=== PATIENT | male | born 1950 | race Caucasian/White ===

== ENCOUNTER 2019-11-07 08:48 | Inpatient (IN) ==
[2019-11-07] MEDS ORDERED: PANTOPRAZOLE 40 MG VIAL IV STA (09:43)
[2019-11-07] MEDS ORDERED: ONDANSETRON 4 MG/2 ML VIAL IV PRN (09:43)
[2019-11-07] MEDS ORDERED: SODIUM CHLORIDE 0.9% 1,000 ML IV STA (09:43)
[2019-11-07 10:12] LABS: Basophils # 0.1 10*3/uL (0.0-0.2); Basophils % 0.7 % (0.0-0.8); Eosinophils # 0.2 10*3/uL (0.0-0.87); Eosinophils % 1.8 % (0.00-10.9); Hematocrit 49.7 VOL% (42.0-52.0); Hemoglobin 16.6 GM/DL (14.0-18.0); Immature Granulocytes % 1.3 %; Immature Granulocytes Absolute 0.11 #; Lymphocytes # 0.7 10*3/uL (1.4-4.0); Mean Corpuscular HGB Conc 33.4 GM/DL (32-36); Mean Corpuscular Volume 95.9 FL (87-102); Mean Platelet Volume 10.5 FL (9.6-12.0); Monocytes % 11.4 % (1.7-12.7); Neutrophils % 76.8 % (38.7-73.9); Platelet Count 225 T/CUMM (130-400); Red Blood Count 5.18 MC/CUMM (3.8-5.5); Red Cell Distribution Width 14.9 % (9.3-17.3); White Blood Count 8.4 T/CUMM (4-12)
[2019-11-07 10:22] LABS: Partial Thromboplastin Time 30.7 SECS (23.9-33.8)
[2019-11-07 10:37] LABS: Bilirubin,Total 0.9 MG/DL (0.2-1.0); Calcium 8.9 MG/DL (8.5-10.1); Osmolality,Calculated 280.5 MOS/KG (273-304); Total Protein 6.6 G/DL (6.4-8.3)
[2019-11-07] MEDS ORDERED: ALBUTEROL 2.5 MG/3 ML NEB RESP TX PRN (11:21)
[2019-11-07] MEDS ORDERED: GLUCAGON 1 MG VIAL IM PRN (11:25)
[2019-11-07] MEDS ORDERED: DEXTROSE 50% 25 GM/50 ML VIAL IV PRN (11:25)
[2019-11-07] MEDS ORDERED: ACETAMINOPHEN 325 MG TABLET PO PRN (11:25)
[2019-11-07] MEDS ORDERED: SODIUM CHLORIDE 0.9% 1,000 ML IV PRN (11:29)
[2019-11-07] MEDS ORDERED: LACTATED RINGERS 1,000 ML IV SCH (11:30)
[2019-11-07 11:54] LABS: Risk Ratio 2.75; Thyroid Stimulating Hormone 3.63 uIU/ml (0.358-3.74); VLDL CHOLESTEROL 23.4 MG/DL
[2019-11-07 14:44] LABS: Hematocrit 47.7 VOL% (42.0-52.0); Hemoglobin 15.6 GM/DL (14.0-18.0)
[2019-11-07 15:39] LABS: Hemoglobin 16.5 GM/DL (14.0-18.0)
[2019-11-07] MEDS: FUROSEMIDE 40 MG/4 ML VIAL IV SCH (15:40)
[2019-11-07 15:52] LABS: Folate > 24.0 NG/ML (5.4-24.0); Vitamin B12 284 PG/ML (211-911)
[2019-11-07] MEDS: NICOTINE 21 MG/24 HR PATCH TRANSDERM PRN (16:04)
[2019-11-07 16:09] LABS: Barbiturates Screen,Urine Negative (Negative); Benzodiazepines Screen,Urine Negative (Negative); Cannabinoid Screen,Urine Negative (Negative); Opiate Screen,Urine Positive (Negative); Phencyclidine Screen,Urine Negative (Negative)
[2019-11-07 16:53] LABS: Hematocrit 47.3 VOL% (42.0-52.0); Hemoglobin 15.5 GM/DL (14.0-18.0)
[2019-11-07] MEDS: carvediloL 6.25 MG TABLET PO SCH (20:35)
[2019-11-07] MEDS: PANTOPRAZOLE 40 MG VIAL IV SCH (20:36)
[2019-11-07] MEDS ORDERED: NF- (Fluticasone-Umeclidin-Vilanter [Trelegy Ellipta] 1 inh) INH SCH (21:00)
[2019-11-07] MEDS: LORazepam 2 MG/1 ML VIAL IV PRN (23:51)
[2019-11-08 06:04] LABS: Basophils # 0.1 10*3/uL (0.0-0.2); Basophils % 0.8 % (0.0-0.8); Eosinophils # 0.2 10*3/uL (0.0-0.87); Eosinophils % 2.7 % (0.00-10.9); Hematocrit 43.1 VOL% (42.0-52.0); Immature Granulocytes Absolute 0.07 #; Lymphocytes % 13.6 % (21.2-54.2); Mean Corpuscular HGB Conc 32.5 GM/DL (32-36); Mean Corpuscular Volume 98.2 FL (87-102); Mean Platelet Volume 10.8 FL (9.6-12.0); Monocytes % 12.4 % (1.7-12.7); Neutrophils % 69.5 % (38.7-73.9); Platelet Count 203 T/CUMM (130-400); Red Blood Count 4.39 MC/CUMM (3.8-5.5); Red Cell Distribution Width 15.2 % (9.3-17.3); White Blood Count 7.4 T/CUMM (4-12)
[2019-11-08 06:30] LABS: Calcium 8.5 MG/DL (8.5-10.1); Osmolality,Calculated 278.7 MOS/KG (273-304)
[2019-11-08] MEDS ORDERED: SODIUM CHLORIDE 0.9% 1,000 ML IV SCH (08:00)
[2019-11-08] MEDS ORDERED: FLUCONAZOLE INJ 200 MG in PREMIX 1 EACH IV ONE (08:56)
[2019-11-08] MEDS ORDERED: propofoL 200 MG/20 ML VIAL IV ONE (09:00)
[2019-11-08] MEDS ORDERED: ETOMIDATE 20 MG/10 ML VIAL IV ONE (09:00)
[2019-11-08] MEDS ORDERED: LIDOCAINE 2% 5 ML VIAL ONE (09:00)
[2019-11-08] MEDS ORDERED: LACTATED RINGERS 1,000 ML IV SCH (09:30)
[2019-11-08] MEDS: THEOPHYLLINE ER (24 HR) 400 MG CAPSULE PO SCH (09:55)
[2019-11-08] MEDS: FOLIC ACID 1 MG TABLET PO SCH (09:55)
[2019-11-08] MEDS: carvediloL 6.25 MG TABLET PO SCH ×2 (09:55→20:34)
[2019-11-08] MEDS: MULTIVITAMIN (CENTRUM) TABLET PO SCH (09:55)
[2019-11-08] MEDS: THIAMINE 100 MG TABLET PO SCH (09:55)
[2019-11-08] MEDS: DILTIAZEM CD 240 MG CAPSULE PO SCH (09:55)
[2019-11-08] MEDS: PANTOPRAZOLE 40 MG VIAL IV SCH ×2 (09:59→20:35)
[2019-11-08] MEDS: FUROSEMIDE 40 MG/4 ML VIAL IV SCH (10:01)
[2019-11-08] MEDS ORDERED: BISACODYL 5 MG TABLET PO ONE (12:00)
[2019-11-08] MEDS: NICOTINE 21 MG/24 HR PATCH TRANSDERM PRN (15:19)
[2019-11-08] MEDS: LORazepam 2 MG/1 ML VIAL IV PRN (15:20)
[2019-11-08] MEDS ORDERED: POLYETHYLENE GLYCOL POWDER 255 GM BOTTLE PO ONE (18:00)
[2019-11-08] MEDS ORDERED: MAGNESIUM CITRATE 300 ML BOTTLE PO ONE (21:00)
[2019-11-09 04:05] LABS: Basophils # 0.1 10*3/uL (0.0-0.2); Basophils % 0.9 % (0.0-0.8); Eosinophils # 0.3 10*3/uL (0.0-0.87); Eosinophils % 3.3 % (0.00-10.9); Hematocrit 38.6 VOL% (42.0-52.0); Hemoglobin 12.6 GM/DL (14.0-18.0); Immature Granulocytes % 1.7 %; Immature Granulocytes Absolute 0.13 #; Lymphocytes % 13.4 % (21.2-54.2); Mean Corpuscular HGB Conc 32.6 GM/DL (32-36); Mean Corpuscular Volume 97.7 FL (87-102); Mean Platelet Volume 10.8 FL (9.6-12.0); Monocytes % 11.8 % (1.7-12.7); Neutrophils % 68.9 % (38.7-73.9); Platelet Count 190 T/CUMM (130-400); Red Blood Count 3.95 MC/CUMM (3.8-5.5); Red Cell Distribution Width 14.9 % (9.3-17.3); White Blood Count 7.8 T/CUMM (4-12)
[2019-11-09 04:11] LABS: Calcium 8.4 MG/DL (8.5-10.1); Osmolality,Calculated 279.5 MOS/KG (273-304)
[2019-11-09 04:12] LABS: PT Patient Result 10.6 SECS (9.8-11.9)
[2019-11-09] MEDS ORDERED: LACTATED RINGERS 1,000 ML IV SCH (07:00)
[2019-11-09] MEDS: THEOPHYLLINE ER (24 HR) 400 MG CAPSULE PO SCH (08:02)
[2019-11-09] MEDS: DILTIAZEM CD 240 MG CAPSULE PO SCH (08:02)
[2019-11-09] MEDS: MULTIVITAMIN (CENTRUM) TABLET PO SCH (08:02)
[2019-11-09] MEDS: carvediloL 6.25 MG TABLET PO SCH (08:02)
[2019-11-09] MEDS: THIAMINE 100 MG TABLET PO SCH (08:03)
[2019-11-09] MEDS: PANTOPRAZOLE 40 MG VIAL IV SCH (08:03)
[2019-11-09] MEDS: FOLIC ACID 1 MG TABLET PO SCH (08:03)
[2019-11-09] MEDS ORDERED: FLUCONAZOLE INJ 100 MG in IV BAG 1 EACH IV ONE (08:56)
[2019-11-09] MEDS ORDERED: allopurinoL 300 MG TABLET PO SCH (09:00)
[2019-11-09] MEDS ORDERED: LIDOCAINE 2% 5 ML VIAL ONE (09:00)
[2019-11-09] MEDS ORDERED: FUROSEMIDE 80 MG TABLET PO SCH (09:00)
[2019-11-09] MEDS ORDERED: propofoL 200 MG/20 ML VIAL IV ONE (09:00)
[2019-11-09 09:59] VITALS: BP 152/79
== END 2019-11-09 12:39 | disposition home or self-care (01) | DRG 378 ==
LOC: N.ED 08:48 → N.EDINP 11:21 → N.TELEN 14:12
PROVIDERS: ADMIT Emergency Medicine; ATTEND Emergency Medicine